=== PATIENT | female | born 1990 | race Caucasian/White ===

== ENCOUNTER 2017-06-30 20:10 | Emergency (ER) | payer OTHER ==
[~2017-06-30] VITALS: Ht 175.3 cm; Wt 104.3 kg
[2017-06-30 20:20] VITALS: BP_SYST 137
[2017-07-01] MEDS ORDERED: HYDROcodone/ACETAMIN 7.5-325 MG TAB PO ONE (00:15)
[2017-07-01] MEDS ORDERED: AMOXICILLIN/CLAVULANATE POTASSIUM 875 MG TABLET PO ONE (00:15)
[2017-07-01 00:42] VITALS: BP_SYST 137
== END 2017-07-01 00:42 | disposition home or self-care (01) ==
LOC: SED 20:10
DX: H60.92 Unspecified otitis externa, left ear (principal)
CPT/HCPCS: 99283

== ENCOUNTER 2017-11-04 04:49 | Emergency (ER) | payer OTHER ==
[~2017-11-04] VITALS: Ht 175.3 cm; Wt 104.3 kg
[2017-11-04 04:50] VITALS: BP_SYST 137
[2017-11-04] MEDS ORDERED: HYDROcodone/ACETAMIN 10-325 MG TAB PO ONE (05:15)
[2017-11-04 05:48] VITALS: BP_SYST 132
== END 2017-11-04 05:48 | disposition home or self-care (01) ==
LOC: SED 04:49
DX: H60.91 Unspecified otitis externa, right ear (principal); R03.0 Elevated blood-pressure reading, without diagnosis of hypertension
CPT/HCPCS: 99283